=== PATIENT | female | born 1990 ===

== ENCOUNTER 2024-09-27 06:16 | Day surgery (SDC) | payer BC, SELFPAY | END 2024-09-27 14:39 | disposition home or self-care (01) | LOC: GI 06:16 | PROVIDERS: ATTENDING PHYSICIAN Internal Medicine Gastroenterology | DX: Z12.11 Encounter for screening for malignant neoplasm of colon (principal); K64.8 Other hemorrhoids; Q43.8 Other specified congenital malformations of intestine; Z86.0100 Personal history of colon polyps, unspecified | CPT/HCPCS: G0105 ==